=== PATIENT | male | born 1955 | race Caucasian/White ===

== ENCOUNTER 2019-08-31 07:48 | Day surgery (SDC) | payer OTHER, MEDICARE ==
[2019-08-28 09:36] VITALS: BMI 26.6
[2019-08-31] MEDS ORDERED: LIDOCAINE HCL/PF 2% SDV 5ML VIAL ONE ×2 (07:51→08:03)
[2019-08-31] MEDS ORDERED: PROPOFOL 20 ML ONE ×4 (07:52→08:03)
[2019-08-31 08:13] VITALS: TEMP 98.2
[2019-08-31 09:33] VITALS: BP 119/80; PULSE 61
--- NOTE | 2019-09-03 11:14 | PATH ---
Surgical Pathology Report Patient Name: TAMIKO MASCORRO [facility]. Rec. #: [id number] /Age/Gender: 1955 (Age: 64) / M Account: [id number] Location: [facility] Taken: 08/31/2019 Received: 08/31/2019 Reported: 09/03/2019 Physicians: Velasquez Knox M.D. Specimen(s) Received A: SECOND PORTION DUODENUM B: GASTRIC ANTRUM C: GE JUNCTION Clinical History GERD, screening, family history of colon cancer Postoperative diagnosis: Esophagitis, hiatal hernia, diverticulosis Final Diagnosis A. SECOND PORTION OF DUODENUM, BIOPSY: DUODENAL MUCOSA WITH NO PATHOLOGIC FINDINGS. B. GASTRIC ANTRUM, BIOPSY: MILD CHRONIC GASTRITIS WITH FEATURES OF REACTIVE GASTROPATHY. IMMUNOSTAIN IS NEGATIVE FOR H. PYLORI ORGANISMS. C. GE JUNCTION, BIOPSY: HYPERPLASTIC ESOPHAGEAL (SQUAMOUS) MUCOSA WITH INTRAEPITHELIAL EOSINOPHILS, CONSISTENT WITH REFLUX ESOPHAGITIS. NO COLUMNAR EPITHELIUM/INTESTINAL METAPLASIA IS IDENTIFIED. Electronically Signed Ashley Stone M.D. Gross Description A. Received in formalin, labeled "biopsy second portion of duodenum" are 2 varner, irregular portions of soft tissue measuring 0.2 and 0.4 cm. in greatest dimension. The specimens are submitted in toto in one cassette. B. Received in formalin, labeled "biopsy gastric antrum" are 2 varner, irregular portions of soft tissue averaging 0.3 cm. in greatest dimension. The specimens are submitted in toto in one cassette. C. Received in formalin, labeled "biopsy GE junction" is a varner, irregular portion of soft tissue measuring 0.4 cm. in greatest dimension. The specimen is submitted in toto in one cassette. 09/01/2019 saudi09/01/2019
== END 2019-08-31 09:35 | disposition home or self-care (01) ==
LOC: FASU-ENDO 07:48
PROVIDERS: ATTEND Internal Medicine Gastroenterology
PROC: 0DB98ZX Excision of Duodenum, Via Natural or Artificial Opening Endoscopic, Diagnostic (ICD-10-PCS; 2019-08-31)
PROC: 0DB68ZX Excision of Stomach, Via Natural or Artificial Opening Endoscopic, Diagnostic (ICD-10-PCS; 2019-08-31)
PROC: 0DB38ZX Excision of Lower Esophagus, Via Natural or Artificial Opening Endoscopic, Diagnostic (ICD-10-PCS; 2019-08-31)
PROC: 0DB48ZX Excision of Esophagogastric Junction, Via Natural or Artificial Opening Endoscopic, Diagnostic (ICD-10-PCS; 2019-08-31)
PROC: 0DJD8ZZ Inspection of Lower Intestinal Tract, Via Natural or Artificial Opening Endoscopic (ICD-10-PCS; principal; 2019-08-31 08:21)
DX: Z12.11 Encounter for screening for malignant neoplasm of colon (principal); Z80.0 Family history of malignant neoplasm of digestive organs; K44.9 Diaphragmatic hernia without obstruction or gangrene; K29.50 Unspecified chronic gastritis without bleeding; K31.9 Disease of stomach and duodenum, unspecified; K21.0 Gastro-esophageal reflux disease with esophagitis
CPT/HCPCS: 43239; G0105

== ENCOUNTER 2024-03-25 07:35 | Day surgery (SDC) | payer OTHER, MEDICARE ==
[2024-03-23 08:32] VITALS: BMI 26.7
[2024-03-25 08:16] VITALS: RESP 18
[2024-03-25 09:56] VITALS: BP 120/67; PULSE 66; TEMP 98.1
== END 2024-03-25 09:50 | disposition home or self-care (01) ==
LOC: FASU-ENDO 07:35
PROVIDERS: ATTEND Internal Medicine Gastroenterology
PROC: 0DB98ZX Excision of Duodenum, Via Natural or Artificial Opening Endoscopic, Diagnostic (ICD-10-PCS; 2024-03-25)
PROC: 0DB68ZX Excision of Stomach, Via Natural or Artificial Opening Endoscopic, Diagnostic (ICD-10-PCS; 2024-03-25)
PROC: 0D748DZ Dilation of Esophagogastric Junction with Intraluminal Device, Via Natural or Artificial Opening Endoscopic (ICD-10-PCS; 2024-03-25)
PROC: 0DJD8ZZ Inspection of Lower Intestinal Tract, Via Natural or Artificial Opening Endoscopic (ICD-10-PCS; principal; 2024-03-25 08:39)
DX: Z12.11 Encounter for screening for malignant neoplasm of colon (principal); D50.9 Iron deficiency anemia, unspecified; K57.30 Diverticulosis of large intestine without perforation or abscess without bleeding; K22.10 Ulcer of esophagus without bleeding; K29.50 Unspecified chronic gastritis without bleeding; K44.9 Diaphragmatic hernia without obstruction or gangrene; R10.13 Epigastric pain; R13.10 Dysphagia, unspecified; Z80.0 Family history of malignant neoplasm of digestive organs
CPT/HCPCS: 43239; 43450; G0105; 88305-TC; 88342-TC